=== PATIENT | female | born 1935 | race Caucasian/White ===

== ENCOUNTER → 2016-08-26 | Outpatient (CLI) | payer OTHER, MEDICARE | LOC: GIMAGING 11:26 | PROVIDERS: ATTEND Family Medicine | DX: M79.662 Pain in left lower leg (principal) | CPT/HCPCS: 73590-PO ==

== ENCOUNTER 2017-07-03 08:35 | Day surgery (SDC) | payer OTHER, MEDICARE ==
[2017-07-03] MEDS ORDERED: LIDOCAINE 1% 300 MG/30 ML SDV SC ONE (08:56)
--- NOTE | 2017-07-03 09:34 | PDHPUP ---
History & Physical Update H&P update statement: This history and physical update is based on an assessment of the patient which was completed after admission or registration (within 24 hours), but prior to the surgery/procedure. H&P update: H&P reviewed & patient examined, no change in patient's condition since H&P completed
--- NOTE | 2017-07-03 11:52 | CPIP ---
[f rep st] INVASIVE CARDIAC PROCEDURE DATE OF PROCEDURE: 07/03/2017 PROCEDURE PERFORMED: [employer] Reveal LINQ device implant, serial number [id number]. INDICATION/APPROPRIATE USE CRITERIA: The patient has a history of TIA versus CVA and the device is b eing implanted to monitor for and to rule out atrial fibrillation. PROCEDURE IN DETAIL: After informed consent was obtained, n.p.o. status was confirmed, the region of the left parasternal area was cleaned, prepped, and draped in a sterile fashion. Approximately 5 cc of 1% lidocaine was utilized for local anesthesia. The skin was incised with a #15 blade and the pr ovided dissection tool was used to tunnel a pocket beneath the skin. The device was then inserted. Local pressure applied for hemostasis, and 3 interrupted jose raul were placed for skin closure. IMPRESSION: Successful LINQ IQ insertion for indication of rule out atrial fibrillation as a cause f or transient ischemic attack/cerebrovascular accident. /[id number]/MODL
== END 2017-07-03 10:09 | disposition home or self-care (01) ==
LOC: FCATH 08:35
PROVIDERS: ATTEND Internal Medicine Cardiovascular Disease
PROC: 0JH63PZ Insertion of Cardiac Rhythm Related Device into Chest Subcutaneous Tissue and Fascia, Percutaneous Approach (ICD-10-PCS; principal; 2017-07-03)
DX: Z13.6 Encounter for screening for cardiovascular disorders (principal); H34.12 Central retinal artery occlusion, left eye
CPT/HCPCS: C1764

== ENCOUNTER → 2018-04-28 | Outpatient (CLI) | payer OTHER, MEDICARE | LOC: GIMAGING 11:47 | PROVIDERS: ATTEND Family Medicine | DX: S60.229A Contusion of unspecified hand, initial encounter (principal); M19.041 Primary osteoarthritis, right hand | CPT/HCPCS: 73130-PO ==